=== PATIENT | male | born 1940 | race Caucasian/White ===

== ENCOUNTER → 2023-10-04 08:25 | Outpatient (REF) | payer OTHER, SELFPAY | LOC: RCS 08:25 | PROVIDERS: ATTENDING PHYSICIAN Internal Medicine Cardiovascular Disease; FAMILY PHYSICIAN Internal Medicine | DX: R06.09 Other forms of dyspnea (principal) | CPT/HCPCS: 93306 ==

== ENCOUNTER → 2023-10-27 10:01 | Outpatient (REF) | payer OTHER, SELFPAY | LOC: RAD 10:01 | PROVIDERS: ATTENDING PHYSICIAN Internal Medicine Cardiovascular Disease; FAMILY PHYSICIAN Internal Medicine | DX: I73.9 Peripheral vascular disease, unspecified (principal) | CPT/HCPCS: 93922; 93925 ==

== ENCOUNTER 2024-08-01 07:10 | Day surgery (SDC) | payer OTHER, SELFPAY ==
[2024-08-01 08:46] LABS: Glucose - Point of Care 124 mg/dl (70-99)
--- NOTE | 2024-08-01 09:25 | ITS.CL.CARDI ---
Software Quality Tester - Cardioversion
Cardioversion
Procedure Report:
Date of Procedure: August 01 2024
Procedure: Cardioversion
Indication: Symptomatic atrial fibrillation
Performing Physician: Arsi Easton DO, FACC
Technique: The patient was brought to the holding area. Signed informed consent was obtained. A time out was called and performed. The patient was anesthetized by the anesthesia service. Anticoagulation status was reviewed and appropriate. R2 pads
were placed anteriorly and posteriorly. A 200 J synchronized biphasic shock restored normal sinus rhythm without significant bradycardia. There were no complications.
Conclusion: Uncomplicated cardioversion from atrial fibrillation to sinus rhythm.
Recommendation: Routine post cardioversion care. Continue fdc anticoagulation.
== END 2024-08-01 10:25 | disposition home or self-care (01) ==
LOC: CATH 07:10
PROVIDERS: ATTENDING PHYSICIAN Nuclear Medicine Nuclear Cardiology; FAMILY PHYSICIAN Internal Medicine; OTHER PHYSICIAN Internal Medicine Cardiovascular Disease
DX: I48.91 Unspecified atrial fibrillation (principal); Z79.01 Long term (current) use of anticoagulants; Z79.82 Long term (current) use of aspirin; I08.3 Combined rheumatic disorders of mitral, aortic and tricuspid valves
CPT/HCPCS: 93312; 93320; 93325; 82962; 92960; 93005

== ENCOUNTER 2025-01-23 14:15 | Inpatient (IN) | payer OTHER, SELFPAY ==
[2025-01-23] VITALS (14 sets, daily range): BP systolic 128–161; BP diastolic 79–97; BMI 26.4; BMI 23.4
--- NOTE | 2025-01-23 12:09 | ED.GENMED ---
History of Present Illness
General
Chief Complaint: Breathing Problem
Time Seen by Provider: 01/23/25 12:08
Nursing documentation reviewed up to this point in time: agreed with
History of Present Illness
History of Present Illness:
84-year-old male referred to the ER from cardiology office for further evaluation of paroxysmal A-fib, decompensated heart failure, anemia. Patient has been in and out of A-fib over the last month. He reported some blood in the toilet today but
states he has not had an effective bowel movement in a week. He states that his stools were dark brown last time he had a BM. He denies cough or cold symptoms. He has been eating and drinking normally. He denies any significant peripheral edema.
He does report feeling fatigued.
I was able to review notes from his emergency room nurse, Dr Obando, prior to arrival who is concerned for intermittent GI bleeding as etiology of anemia. She would also feel that patient needs better control of A-fib if not initiation of
antiarrhythmics.
Past History
Past History
ED Past Medical History: CAD, CHF, GERD, NIDDM and Other (mr, pulmonary htn)
ED Past Surgical History: Appendectomy and Cardiac (Cardiac catheterization 05/01/2017 revealing stable coronary artery disease/medical management recommended.)
Social History
Tobacco: Former smoker
Drug: None
Personal:
Living: with family
Employment: Retired
Review of Systems
Review of Systems
Allergies reviewed?: Yes
Phy Exam
Physical Exam
Physical Exam:
Patient is awake, alert, appears in no acute distress, head is NCAT, PERRL, EOMI mucous membranes moist, conjunctiva pink, heart regular rate and rhythm without murmurs or ectopy, 2 out of 6 systolic ejection murmur best heard at left second costal
space, lungs are clear to auscultation without wheezes rales or rhonchi, no JVD, abdomen is soft and nontender on palpation, rectal exam performed with nurse present at bedside shows vault to be empty, no blood noted on glove, Hemoccult negative,
control positive extremities with trace edema symmetric, GCS is 15
Scores
Heart Failure Risk
Heart Failure Risk Score: Yes
History of Stroke or TIA: No
History of intubation for respiratory distress: No
Heart rate on ED arrival >/= 110: No
SaO2 <90% on arrival on room air: No
HR >/=110 during 3min walk test (or too ill to perform test): No
ECG has acute ischemic changes: No
Urea >/=12mmol/L (BUN 33.6mg/dL): Yes
Serum CO2>/=35mmol/L: No
Troponin I or T elevated to WI Level (0.4mg/dL): No
NT-proBNP >/=5,000ng/L (5,000pg/ml): Yes
HF Risk Score: 2
Admission Status: MEDIUM RISK 9.2% Consider observation or discharge to home with homecare & f/u visit to PCP/Video Tape Duplicator, or SNF for treatment
Course
Orders/Labs/Results
Orders:
Orders
01/23/25 11:59
EKG [Electrocardiogram (*1)] Urgent
Reason for Study: Shortness of Breath
EKG- Treatment ONCE
01/23/25 12:16
Pulse Ox/cont/shift [RESP] Stat
Quantity: 1
01/23/25 12:17
Cardiac Monitoring- Treatment ONCE
CR Chest - 2 Views Urgent
Comment:
Reason For Exam: dyspnea
01/23/25 12:23
Complete Blood Count/With Diff Urgent
Comprehensive Metabolic Panel Urgent
Magnesium Urgent
NT-proBNP Urgent
PTT Urgent
Prothrombin Time Urgent
Troponin I Q3H
01/23/25 13:20
Type+Screen Urgent
01/23/25 13:22
* Blood Bank Products Urgent
Blood Bank Products: *Packed RBC Leuko (PRBC's
Quantity: 1
Transfuse Today: Yes
Reason: Anemia
Furosemide [Lasix] 80 mg IV NOW STA
01/23/25 13:30
Magnesium Sulfate 1 G/D5w [Magnesium Sulfate] 1 gm in 100 ml IV NOW
01/23/25 15:30
Troponin I Q3H
Abnormal Lab Results
01/23/25
12:23
RBC 3.93 L 10^6/uL
(4.70-6.10)
Hgb 8.6 L g/dL
(13.0-18.0)
Hct 29.6 L %
(39.0-52.0)
MCV 75.3 L fL
(80.0-94.0)
MCH 21.9 L pg
(27.0-31.0)
MCHC 29.1 L g/dL
(33.0-37.0)
RDW 18.7 H %
(11.5-14.5)
Absolute Neuts (auto) 7.2 H 10^3/uL
(1.4-6.5)
Absolute Lymphs (auto) 0.7 L 10^3/uL
(1.2-3.4)
Absolute Monos (auto) 0.8 H 10^3/uL
(0.1-0.6)
Neutrophils % 81.8 H %
(42.2-75.2)
Lymphocytes % 7.5 L %
(20.5-51.1)
PT 19.2 H Sec
(11.4-14.6)
APTT 36.2 H Sec
(23.4-35.0)
Chloride 109 H mmol/L
(98-107)
BUN 34 H mg/dl
(9-20)
Creatinine 1.5 H mg/dL
(0.7-1.3)
Glucose 123 H mg/dl
(70-99)
Magnesium 1.5 L mg/dl
(1.6-2.3)
AST 15 L U/L
(17-59)
01/23/25 12:23
01/23/25 12:23
Vital Signs
Initial and Last Documented VS:
Initial Vital Signs
Temp Pulse Resp BP Pulse Ox
98.5 F 69 16 135/79 98
01/23/25 11:55 01/23/25 11:55 01/23/25 11:55 01/23/25 11:55 01/23/25 11:55
Last Documented Vital Signs
Temp Pulse Resp BP Pulse Ox
98.5 F 74 29 154/94 98
01/23/25 11:55 01/23/25 12:15 01/23/25 12:15 01/23/25 12:15 01/23/25 12:18
MDM/Problems Addressed
Differential Diagnosis Includes:
Differential diagnosis to consider but not limited to decompensated heart failure, symptomatic atrial fibrillation, symptomatic anemia, electrolyte dyscrasia along with other etiologies considered
Chronic conditions affecting care:
A-fib, diabetes, CAD, on long-term anticoagulation
*Radiology
Radiology exam reviewed: preliminary read by ED provider (I independently viewed and interpreted two-view chest x-ray showing cardiomegaly, increased pulmonary vascular congestion concerning for CHF)
*Pulse Oximetry
SaO2: 98
Oxygen Mode of Delivery: Room air
Patient hypoxic: no
*EKG
Interpreted by ED Provider?: Yes ( I independently viewed and interpreted twelve-lead EKG showing a flutter with 4-1 conduction, rate 67, leftward axis, no ST elevation, this is an abnormal tracing without evidence for acute ischemia, new A flutter
compared to prior)
*Balancer Interpretation
Rate: other (I independently viewed and interpreted rhythm strip showing a flutter with 4-1 conduction)
*Critical Care Note
Total Time (30-74mins, 75-104mins- exclusive of procedures): Not Applicable
Update Note
Update Note:
Patient resting in no acute distress, vital signs stable. I discussed with patient concern for decompensated CHF in light of symptomatic anemia and reported rectal bleeding although no evidence of rectal bleeding at the current time. Patient
agrees with plan. IV Lasix ordered in addition to 1 unit packed red cells. Written blood consent obtained. I reviewed full patient presentation with the hospitalist who accepts patient for admission.
ED Attending Note
-
Portions of this chart may have been created with voice recognition software.� Occasional wrong word or��sound alike� substitutions may have occurred due to the inherent limitations of voice recognition software.
Discharge Plan
Departure
Patient Disposition: Admit
Date of Disposition: 01/23/25
Time of Disposition: 13:29
Presentation/result/management discussed w/ accepting MD/DO: Hospitalist
Discharge Problem:
Anemia, CHF (congestive heart failure), Atrial flutter, Hypomagnesemia
Prescriptions:
No Action
folic acid 1 MG tablet
1 mg PO DAILY
rosuvastatin 20 MG tablet
20 mg PO DAILY
metformin 500 MG tablet extended release 24 hr
500 mg PO BID
cholecalciferol (vitamin D3) 2,000 UNITS tablet
2,000 unit PO DAILY@1400
isosorbide mononitrate 60 MG tablet extended release 24 hr
30 mg PO DAILY
famotidine 20 MG tablet
40 mg PO BID
carvedilol 12.5 MG tablet
6.25 mg PO BID
furosemide 40 mg Tablet
40 mg PO .MON.,TU.,WED.
pantoprazole 40 mg Tablet,Delayed Release (Dr/Ec)
40 mg PO DAILY
Eliquis 5 mg Tablet
5 mg PO BID
Referrals:
Amy Garcias MD [Family Provider, Internal Medicine]
Interventions
Interventions:
*Risk Screen - Suicide Last Done: 01/23/25 11:55
*General Assessment Last Done: 01/23/25 11:55
*Neglect/Abuse Screening Last Done: 01/23/25 11:55
*ED- Fall Risk Assessment Last Done: 01/23/25 11:55
*ED COVID-19 Vaccine History Last Done: 01/23/25 11:55
*ED Influenza Vaccine History Last Done: 01/23/25 11:55
ED- Cardiac Assessment Last Done: 01/23/25 12:35
ED- Pulmonary Assessment Last Done: 01/23/25 12:35
Discharge Date and Time
Print Language: KAZAKH
[2025-01-23 12:34] LABS: Hematocrit 29.6 % (39.0-52.0); Hemoglobin 8.6 g/dL (13.0-18.0); Mean Corp Hgb Conc. 29.1 g/dL (33.0-37.0); Mean Corpuscular Volume 75.3 fL (80.0-94.0); Nucleated Red Blood Cells % 0.2 % (-); Platelet Count 295 10^3/uL (130-400); Red Cell Dist. Width 18.7 % (11.5-14.5)
[2025-01-23 12:45] LABS: INR 1.56; PT 19.2 Sec (11.4-14.6)
[2025-01-23 12:46] LABS: APTT 36.2 Sec (23.4-35.0)
[2025-01-23 12:51] LABS: ALT (SGPT) 11 U/L (0-50); AST (SGOT) 15 U/L (17-59); Albumin 4.3 g/dl (3.5-5.0); Alkaline Phosphatase 63 U/L (38-126); Blood Urea Nitrogen 34 mg/dl (9-20); Calcium 9.4 mg/dl (8.4-10.2); Carbon Dioxide 24 mmol/L (22-30); Chloride 109 mmol/L (98-107); Estimated Creatinine Clearance 38 ml/min; Glucose 123 mg/dl (70-99); Magnesium 1.5 mg/dl (1.6-2.3); Potassium 4.6 mmol/L (3.5-5.1); Sodium 142 mmol/L (135-145); Total Protein 7.6 g/dl (6.3-8.2); eGFR 45.34
[2025-01-23 13:03] LABS: Troponin I 0.034 ng/ml
[2025-01-23] MEDS: LASIX 80 MG IV (14:03)
[2025-01-23] MEDS: MAGNESIUM SULFATE 100 IV (14:06)
--- NOTE | 2025-01-23 14:08 | HPS.HSE ---
Addendum entered and electronically signed by Drea Higgins MD 01/23/25 17:56:
This is an addendum to H&P written by Cary Mathew on 01/23/2025. �Patient seen and examined dependently with PA.
84-year-old male past medical history of paroxysmal atrial fibrillation on Eliquis, SVT, hypertension, CAD, chronic diastolic heart failure, COPD, type 2 diabetes, presenting with intermittent atrial fibrillation for the past month. �He had bright
red blood in the toilet intermittently over past week. Has fatigue.
He had polypectomy in August. �GI doctor at [facility]. �He went to [facility] ER on 01/18 and hemoglobin is 8.6 previously 01-18. �Plan was for colonoscopy next month.
Vital signs unremarkable. �Rectal exam showed empty vault and heme-negative.
Labs show hemoglobin 8.6. �Cardiac BNP 7000. �Magnesium 1.5. �Creatinine 1.5. �EKG shows atrial flutter with 41 AV conduction. �Chest x-ray pending.
Patient with acute HFpEF exacerbation/symptomatic microcytic anemia. �80 IV Lasix given. �1 unit of blood. �Check iron studies. �Hold Eliquis. �Cardiology consulted.�
Senna started for constipation.�
Original Note:
Family Physician
-
Family Physician: Amy Garcias
Chief Complaint
-
Shortness of Breath
History of Present Illness
Patient is an 84 y/o male past medical history of paroxysmal atrial fibrillation, chronic diastolic heart failure, coronary artery disease, hypertension, hyperlipidemia, diabetes and COPD who presents with shortness of breath. Patient reports
ongoing shortness of breath for the past several weeks. He denies cough, lower extremity edema or weight gain. He reports frequent episodes of dizziness particularly when walking but notes it resolves when he sits. He was seen by cardiology in the
office today who noted him to appear short of breath and very pale in the office. His hemoglobin has dropped from around 10/11 to 8.6. Patient reports he has been having trouble with constipation, and has noted some drops of bright red blood on
the toilet tissue. He denies any blood in the toilet or black/dark colored stools.
Medical History
Past Medical History
Past Medical History: Reports Other
Additional Past Medical History:
Coronary Artery Disease s/p Stent
Chronic Diastolic Heart Failure
Atrial Fibrillation
Essential Hypertension
Hyperlipidemia
Diabetes Mellitus, Type II
COPD
Past Surgical History: Reports Other
Additional Past Surgical History:
Appendectomy
Bilateral Cataracts
Back Surgery
Social History
Tobacco: Former Smoker
Alcohol: Occasional
Family History
Family History: Not pertinent
Allergies / Home Medications
Allergies reflects when Allergies were last updated in [facility].
Home Medications with original date entered in [facility]
Allergy/Medication List:
Allergies
Allergy/AdvReac Type Severity Reaction Status Date / Time
No Known Allergies Allergy Verified 01/23/25 11:57
Home Medications
folic acid 1 mg tablet 1 mg PO DAILY Supplement 11/04/15
rosuvastatin 20 mg tablet 20 mg PO DAILY High cholesterol 11/04/15
metformin 500 mg tablet,extended release 24 hr 500 mg PO BID Diabetes 05/31/17
famotidine 20 mg tablet 40 mg PO BID Gastrointestinal issue 06/05/19
apixaban 5 mg tablet (Eliquis) 5 mg PO BID 08/01/24
furosemide 40 mg tablet 40 mg PO MOTUWE 08/01/24
pantoprazole 40 mg tablet,delayed release 40 mg PO DAILY 08/01/24
carvedilol 6.25 mg tablet 6.25 mg PO BID 01/23/25
cholecalciferol (vitamin D3) 50 mcg (2,000 unit) tablet 50 mcg PO DAILY 01/23/25
isosorbide mononitrate 30 mg tablet,extended release 24 hr 30 mg PO DAILY 01/23/25
Review of Systems
-
A 12 point ROS was completed and negative except as noted: Yes
Constitutional: Denies Fever
Respiratory: Reports Trouble Breathing; Denies Cough
Cardiac: Denies Chest Pain or Palpitations
Abdomen/GI: Reports Constipated
Physical Exam
Vital Signs
Vital Signs
Temp Pulse Resp BP Pulse Ox
98.5 F 67 29 137/97 98
01/23/25 11:55 01/23/25 14:03 01/23/25 12:15 01/23/25 14:03 01/23/25 12:18
Physical Exam
General: Well Developed, Well Nourished and No Apparent Distress
HEENT: NormoCephalic, Anicteric, Moist mucous membranes and Atraumatic
Respiratory: Rales and Non Labored Respirations
Cardiac: S1/S2, Irregular Rhythm, Murmur and JVD; No Tachycardia
GI: Soft, Non Tender, Non Distended and Other (Slightly hypoactive bowel sounds)
Rectal: Hem Negative (Per ED provider)
Musculoskeletal: No Clubbing, No Cyanosis and No Edema
Skin: Warm and Dry; No Rash
Neuro: Awake, Alert, Oriented and Nonfocal/grossly intact
Psych: Calm
Laboratory Results
-
01/23/25 12:23
01/23/25 12:23
Laboratory Results
PT 19.2 Sec (11.4-14.6) H 01/23/25 12:23
INR 1.56 01/23/25 12:23
APTT 36.2 Sec (23.4-35.0) H 01/23/25 12:23
Total Bilirubin 1.1 mg/dl (0.2-1.3) 01/23/25 12:23
AST 15 U/L (17-59) L 01/23/25 12:23
ALT 11 U/L (0-50) 01/23/25 12:23
Alkaline Phosphatase 63 U/L (38-126) 01/23/25 12:23
Troponin I 0.034 ng/ml 01/23/25 12:23
Data Reviewed
-
Diagnostic Radiology: Report Reviewed by me
Lab Data: Labs Reviewed by me
Impression/Plan
-
Acute on Chronic HFpEF
-Consult Cardiology
-Check Echo as prior is from 2023
-Continue Lasix 40mg IV Daily
-Monitor Daily Weights
Microcytic Anemia
-Notes indicate baseline Hgb ~10-11
-1 unit PRBCs ordered by ED
-Check iron studies
-Episodes of bright red blood on toilet tissue seem more consistent with hemorrhoids particularly with reports of constipation
-Initial stool heme-negative in ED - Continue to heme-test stools
-Hold on GI consult for now
Constipation
-Start Senna-S 2 tabs BID
Atrial Fibrillation, seem persistent as cardiology note indicates patient has been in A-Fib since December
-Hold Eliquis due to anemia and slight hemorrhoidal bleeding
-Continue carvedilol for rate control
Coronary Artery Disease s/p Stent
-Patient is not currently on aspirin as outpatient -Defer to Cardiology
-Continue isosorbide mononitrate
-Continue rosuvastatin
Diabetes Mellitus, Type II
-Hold metformin
-Monitor sugars and continue coverage insulin
DVT proph: SCDs
Code Status: Full Code
[2025-01-23 14:56] LABS: Iron 33 ug/dl (49-181)
[2025-01-23 15:06] LABS: Total Iron Binding Capacity 484 ug/dl (261-462)
[2025-01-23 15:32] LABS: Ferritin 21.1 ng/ml (17.9-464.0)
--- NOTE | 2025-01-23 15:56 | W.PN.CARDCBS ---
Addendum entered and electronically signed by Sumi Obando MD 01/23/25 18:20:
I saw and examined the patient.
The Sinter Press Operator's note was reviewed and I agree with the note.
Comment: Please refer to my outpatient note/consultation. Patient recently was seen at [facility] emergency department 01/18/2025 with increasing shortness of breath. He was more anemic than prior baseline at 8.6 compared to 10�11
previously. He had symptoms of heart failure with preserved ejection fraction and increased volume with elevated proBNP. He was discharged with outpatient follow-up and outpatient follow-up colonoscopy to follow-up on prior GI bleed and
polypectomy 08/2024. He presented to my office today with dyspnea on exertion, decline in activity level and feeling poorly. He was seen and transported to the emergency department for assessment. He once again has significant anemia with
recurrent constipation and some blood seen in the toilet. He in addition is volume overloaded with heart failure. Lastly he has known atrial fibrillation which has been relatively quiet but since December he has had frequent paroxysmal atrial
fibrillation almost persistent at times. Rate was controlled in the office. He is on oral anticoagulation.
Plan at this time:
Labs reviewed from the emergency department.
IV Lasix started for diuresis. Follow input/output and daily weights. Follow creatinine given renal insufficiency.
Given more atrial fibrillation noted which has been paroxysmal but now with increased burden since December on Linq implantable monitor continue rate control but consider antiarrhythmic drug therapy. Oral anticoagulation as able after GI
assessment.
GI assessment for anemia which is likely driving some of his heart failure.
Repeat echocardiogram. Last echocardiogram performed elsewhere.
Original Note:
Today's Communication / Plan
-
GI eval
IV diuresis
Impression / Plan
-
Please refer to office note dated 01/23/25 as consult
Primary Flight Steward: Dr. Sumi Obando
Assessment:
Acute heart failure with preserved EF
Acute on chronic anemia
ER visit to [facility] 01/18/25 for acute anemia, CHF
History of GI bleeding with polypectomy (precancerous) 07/2024
CKD
Paroxysmal atrial fibrillation, 34% burden
History of CV 07/[address] since 2020
Chronic Eliquis anticoagulation
CAD with prior stenting in 2003 to circumflex
History of ablation for AVNRT in 2019
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
Hypertension
Type 2 diabetes
PVCs
Bradycardia
COPD
ALBERT on CPAP
Former smoker
ECHO 10/04/23: EF 50%, stage III diastolic dysfunction, MAC, moderate eccentric MR, mild to moderate with peak/mean gradients 43/23 mmHg, JAIME 1.1 cm�, mild to moderate TR, PAP 60 mmHg
Plan:
- Patient was seen in office today for follow-up post ER visit 01/18/2025 to [place] for acute on chronic anemia and shortness of breath. He was back in atrial fibrillation during that visit and Coreg dose was increased back to 6.25 mg twice
daily, (previously had been decreased due to dizziness). He was felt to be in acute heart failure and there was also concern for continued bleeding. Of note he had prior GI bleed with polypectomy 07/2024 and was planned for repeat colonoscopy
02/25/2025.
- proBNP 7280. received IV lasix 80mg in ER. will plan for IV lasix 40mg daily pending response. was on lasix 40mg MTuWe as OP. Cr 1.5 (baseline 1.3-1.7)
- hgb 8.6 on arrival. receiving blood transfusion. GI to eval.
- iron studies reviewed, consider iron repletion
- noted to be in rate controlled aflutter on review of EKG. recent burden 34% by by linq monitor since 12/18/24. continue rate control strategy with OP coreg for now as eliquis on hold with GI bleeding. eventually would consider for AAD therapy
- trop 0.034. no CP.
- consider repeat echo, last from 2023 as above
- will follow
Progress Note - Flight Steward
Subjective
Date of Service: January 23, 2025
patient reports SOB. no CP
Objective
Labs:
01/23/25 12:23
01/23/25 12:23
Labs
Hgb 8.6 g/dL (13.0-18.0) L 01/23/25 12:23
Hct 29.6 % (39.0-52.0) L 01/23/25 12:23
Plt Count 295 10^3/uL (130-400) 01/23/25 12:23
PT 19.2 Sec (11.4-14.6) H 01/23/25 12:23
INR 1.56 01/23/25 12:23
APTT 36.2 Sec (23.4-35.0) H 01/23/25 12:23
Sodium 142 mmol/L (135-145) 01/23/25 12:23
Potassium 4.6 mmol/L (3.5-5.1) 01/23/25 12:23
BUN 34 mg/dl (9-20) H 01/23/25 12:23
Creatinine 1.5 mg/dL (0.7-1.3) H 01/23/25 12:23
Glucose 123 mg/dl (70-99) H 01/23/25 12:23
Troponins
01/23/25
12:23
Troponin I 0.034
Vital Signs and I&O:
Vital Signs
Temp Pulse Resp BP Pulse Ox
98.6 F 81 20 142/95 96
01/23/25 15:50 01/23/25 15:50 01/23/25 15:50 01/23/25 15:50 01/23/25 15:50
Vital Signs
Temp Pulse Resp BP Pulse Ox
98.6 F 81 20 142/95 96
01/23/25 15:50 01/23/25 15:50 01/23/25 15:50 01/23/25 15:50 01/23/25 15:50
Intake & Output
01/21/25 01/22/25 01/23/25 01/24/25
07:59 07:59 07:59 07:59
Intake Total 0 / 0
Output Total 400 / 400
Balance -400 / -400
Physical Exam
Physical Exam
GEN: No distress, awake, alert, oriented x3. pale. receiving blood transfusion. on supp O2
HEENT: supple, anicteric, mmm, eomi
LUNGS: Crackles B/L, no wheezes/rales
CV: Irreg, S1/S2, 2/6 murmur
ABD: soft, BS+, NT/ND
EXT: No cyanosis, clubbing. 1+ edema of B/L ankles
NEURO: Gross non-focal
SKIN: Warm, pink, dry. No rash
[2025-01-23 16:03] LABS: Folate > 20.0 ng/ml (2.76-20); Vitamin B12 291 pg/ml (239-931)
[2025-01-23 16:30] LABS: Troponin I 0.032 ng/ml
[2025-01-23 17:19] LABS: Glucose - Point of Care 120 mg/dl (70-99)
[2025-01-23] MEDS: NOVOLOG FLEXPEN-LOW RESISTANCE SC (17:31)
--- NOTE | 2025-01-23 18:02 | PTCARENOTE ---
pt presents from ED via stretcher. pt AAO*2, Disoriented to place, confused at times. pt with PRBCs infusing. pt denies any pain at this time. Vss, Room air. pt oriented to the room. bed alarm in, SCD placed in. call das within the reach.
[2025-01-23] MEDS: SENOKOT-S 2 TABLET PO (19:39)
[2025-01-23] MEDS: COREG 6.25 MG PO (19:40)
[2025-01-23 21:32] LABS: Glucose - Point of Care 114 mg/dl (70-99)
[2025-01-24] VITALS (8 sets, daily range): BP systolic 99–158; BP diastolic 62–99; PULSE 68–69; O2SAT 97; BMI 23.1
[2025-01-24 07:30] LABS: Glucose - Point of Care 135 mg/dl (70-99)
[2025-01-24] MEDS: NOVOLOG FLEXPEN-LOW RESISTANCE SC ×2 (07:31→17:27)
[2025-01-24] MEDS: SENOKOT-S 2 TABLET PO ×2 (07:44→19:53)
[2025-01-24] MEDS: IMDUR (EXTENDED RELEASE) 30 MG PO (07:44)
[2025-01-24] MEDS: PEPCID 20 MG PO (07:44)
[2025-01-24] MEDS: LASIX 40 MG IV (07:44)
[2025-01-24] MEDS: COREG 6.25 MG PO (07:44)
[2025-01-24] MEDS: CRESTOR 20 MG PO (07:44)
[2025-01-24] MEDS: PROTONIX 40 MG PO (07:46)
[2025-01-24 09:34] LABS: Hematocrit 31.3 % (39.0-52.0); Hemoglobin 9.2 g/dL (13.0-18.0); Mean Corp Hgb Conc. 29.4 g/dL (33.0-37.0); Mean Corpuscular Volume 74.0 fL (80.0-94.0); Platelet Count 277 10^3/uL (130-400); Red Cell Dist. Width 19.1 % (11.5-14.5)
[2025-01-24 10:02] LABS: Glycohemoglobin (HgbA1c) 6.3 % (4.0-5.6)
[2025-01-24 10:03] LABS: Blood Urea Nitrogen 37 mg/dl (9-20); Calcium 9.2 mg/dl (8.4-10.2); Carbon Dioxide 26 mmol/L (22-30); Chloride 105 mmol/L (98-107); Estimated Creatinine Clearance 41 ml/min; Glucose 203 mg/dl (70-99); Magnesium 1.6 mg/dl (1.6-2.3); Potassium 4.3 mmol/L (3.5-5.1); Sodium 140 mmol/L (135-145); eGFR 45.34
--- NOTE | 2025-01-24 10:29 | W.PN.HOSP.TC ---
Addendum entered and electronically signed by Stan Pastor MD 01/24/25 12:35:
Order CBC in AM
Original Note:
Today's Communication/Plan
-
IV Lasix
Further GDMT for HF per cardiology
Start IV Iron for 2-3 doses.
Assessment / Plan
Assessment / Plan
Physical Exam
General: chronically ill looking, no Apparent Distress
HEENT: Normocephalic, Anicteric, Moist mucous membranes and Atraumatic
Respiratory: clear lungs, I did not hear rales
Cardiac: S1/S2, Irregular Rhythm, Murmur
GI: Soft, Non Tender, Non Distended
Rectal: Hem Negative (Per ED provider)
Musculoskeletal: No Clubbing, No Cyanosis and No Edema
Skin: Warm and Dry; No Rash
Neuro: Awake, Alert, Oriented and Nonfocal/grossly intact
Psych: Calm
Acute on Chronic HF mildly reduced EF at LVEF 50%
His breathing is better
Will do gentle diuresis due to his age/ seems very frail
f/w echo
Daily weight
on BB, Imdur, Lasix, Statin,
Further GDMT for HF per cardiology
Monitor BMP
Appreciate cardiology help
# Chronic blood loss anemia with microcytic Anemia
-Notes indicate baseline Hgb ~10-11
-s/p 1 unit PRBCs ordered by ED
-Low Iron, start IV Iron
-Episodes of bright red blood on toilet tissue seem more consistent with hemorrhoids particularly with reports of constipation
-Initial stool heme-negative in ED - Continue to heme-test stools
- Can resume his GI follow-up after treating heart failure.
# Constipation
-Start Senna-S 2 tabs BID
# Paroxysmal atrial fibrillation, 34% burden
History of CV 07/2024
c/w Coreg
Chronic Eliquis anticoagulation
-Hold Eliquis due to anemia and slight hemorrhoidal bleeding
-Continue carvedilol for rate control
Coronary Artery Disease s/p Stent
-Patient is not currently on aspirin as outpatient -Defer to Cardiology
-Continue isosorbide mononitrate
-Continue rosuvastatin
# CKD stage IIIA
seems at baseline
Monitor for retention while on Lasix.
#Diabetes Mellitus, Type II
-Hold metformin while on IV Lasix to protect kidney function.
-Monitor sugars and continue coverage insulin
DVT proph: SCDs
Code Status: Full Code
Total time spent to see the patient, examine the patient, review data and lab results, discuss treatment plan with patient, nursing staff around 55 minutes
Anticipated Discharge: > 48 hours
Subjective/Interval History
-
Date of Service: January 24, 2025
He reports improvement in breathing
Not on oxygen
No chest pain
No fevers
Objective Data
-
Labs:
Laboratory Results
01/24/25
08:59
WBC 8.9
Hgb 9.2 L
Hct 31.3 L
Plt Count 277
Sodium 140
Potassium 4.3
Chloride 105
Carbon Dioxide 26
BUN 37 H
Creatinine 1.5 H
Glucose 203 H
Calcium 9.2
Vital Signs:
Vital Signs
Temp Pulse Resp BP Pulse Ox
97.4 F 68 16 158/99 96
01/24/25 07:21 01/24/25 07:44 01/24/25 07:21 01/24/25 07:44 01/24/25 07:21
I&O
01/23/25 01/24/25 01/25/25
06:59 06:59 06:59
Intake Total 1090 / 1090
Output Total 2775 / 2775
Balance -1685 / -1685
[2025-01-24 11:51] LABS: Glucose - Point of Care 176 mg/dl (70-99)
--- NOTE | 2025-01-24 12:08 | W.PN.CARDCBS ---
Addendum entered and electronically signed by Cm Christianson MD 01/24/25 14:46:
I saw and examined the patient.
The Amr Physician's note was reviewed and I agree with the note.
Comment: GEN: No distress, awake, Ox3
HEENT: supple, anicteric, mmm
LUNGS: CTA, no wheezes/rales
CV: Irreg, S1/S2, 1/6 syst LSB, no murmur
ABD: soft, BS+, NT/ND
EXT: No edema
NEURO: Gross non-focal
SKIN: No rash
plan:
Overall feeling well. He has lost 10 pounds and is diuresed well. Would continue Lasix IV today and then convert over to p.o. in AM. Would switch to 40 mg p.o. daily.
Check echocardiogram today.
Continue Coreg, Imdur, and Crestor.
Hemoglobin at 9.2. He has a microcytic anemia and will need GI evaluation.
Original Note:
Today's Communication / Plan
-
continue IV lasix
echo
iron repletion. consider resume OP eliquis as heme negative. as Cr 1.5 and age greater than 80 with recent gi bleed, would favor placing on lower dose of 2.5mg BID
Impression / Plan
-
Please refer to office note dated 01/23/25 as consult
Primary Carrier Operator: Dr. Sumi Obando
Assessment:
Acute heart failure with preserved EF
Acute on chronic anemia
ER visit to [facility] 01/18/25 for acute anemia, CHF
History of GI bleeding with polypectomy (precancerous) 07/2024
CKD
Paroxysmal atrial fibrillation, 34% burden
History of CV 07/[address] since 2020
Chronic Eliquis anticoagulation
CAD with prior stenting in 2003 to circumflex
History of ablation for AVNRT in 2019
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
Hypertension
Type 2 diabetes
PVCs
Bradycardia
COPD
ALBERT on CPAP
Former smoker
ECHO 10/04/23: EF 50%, stage III diastolic dysfunction, MAC, moderate eccentric MR, mild to moderate with peak/mean gradients 43/23 mmHg, JAIME 1.1 cm�, mild to moderate TR, PAP 60 mmHg
KACIE 08/01/24: EF 50%, no atrial appendage thrombus, at least moderate eccentric posteriorly directed MR, known , no AR, at least mild TR, mild to moderate atherosclerotic plaque along descending thoracic aorta, not mobile
Plan:
- Patient was seen in office 01/23 for follow-up post ER visit 01/18/2025 to [facility] for acute on chronic anemia and shortness of breath. He was back in atrial fibrillation during that visit and Coreg dose was increased back to 6.25 mg
twice daily, (previously had been decreased due to dizziness). He was felt to be in acute heart failure and there was also concern for continued bleeding/anemia. Of note he had prior GI bleed with polypectomy 07/2024 and is planned for repeat
colonoscopy 02/25/2025.
- proBNP 7280. received IV lasix 80mg in ER 01/23 with good response. continue IV lasix 40mg daily. was on lasix 40mg MTuWe as OP. Cr stable at 1.5 (baseline 1.3-1.7)
- hgb up to 9.2 s/p 1U PRBCs on 01/23. was reportedly heme negative in ER. iron studies noted, IV iron ordered
- noted to be in rate controlled aflutter on review of tele overnight. recent burden 34% by by linq monitor since 12/18/24. continue rate control strategy with OP coreg for now as eliquis on hold with recent GI bleeding. eventually would consider for
AAD therapy
- consider resume OP eliquis as heme negative. as Cr 1.5 and age greater than 80 with recent gi bleed, would favor placing on lower dose of 2.5mg BID
- trops stable in 0.03 range. no CP.
- Repeat echo, last from 2023 and KACIE from 07/2024 as above. Reassess degree of MR/
Progress Note - Carrier Operator
Subjective
Date of Service: January 24, 2025
Reports breathing is improved today. States has had good urine output with IV Lasix
Objective
Labs:
01/24/25 08:59
01/24/25 08:59
Labs
Hgb 9.2 g/dL (13.0-18.0) L 01/24/25 08:59
Hct 31.3 % (39.0-52.0) L 01/24/25 08:59
Plt Count 277 10^3/uL (130-400) 01/24/25 08:59
PT 19.2 Sec (11.4-14.6) H 01/23/25 12:23
INR 1.56 01/23/25 12:23
APTT 36.2 Sec (23.4-35.0) H 01/23/25 12:23
Sodium 140 mmol/L (135-145) 01/24/25 08:59
Potassium 4.3 mmol/L (3.5-5.1) 01/24/25 08:59
BUN 37 mg/dl (9-20) H 01/24/25 08:59
Creatinine 1.5 mg/dL (0.7-1.3) H 01/24/25 08:59
Glucose 203 mg/dl (70-99) H 01/24/25 08:59
Troponins
01/23/25 01/23/25
12:23 15:30
Troponin I 0.034 0.032
Vital Signs and I&O:
Vital Signs
Temp Pulse Resp BP Pulse Ox
98.3 F 67 16 103/67 97
01/24/25 11:22 01/24/25 11:22 01/24/25 11:22 01/24/25 11:22 01/24/25 11:22
Vital Signs
Temp Pulse Resp BP Pulse Ox
98.3 F 67 16 103/67 97
01/24/25 11:22 01/24/25 11:22 01/24/25 11:22 01/24/25 11:22 01/24/25 11:22
Intake & Output
01/22/25 01/23/25 01/24/25 01/25/25
07:59 07:59 07:59 07:59
Intake Total 1090 / 1090
Output Total 2775 / 2775
Balance -1685 / -1685
Physical Exam
Physical Exam
GEN: No distress, awake, alert, oriented x3. Sitting in chair
HEENT: supple, anicteric, mmm, EOMI
LUNGS: Few crackles bilaterally
CV: Irreg, S1/S2, 2/6 syst LSB
ABD: soft, BS+, NT/ND
EXT: No cyanosis, clubbing. trace edema of B/L LE
NEURO: Gross non-focal
SKIN: Warm, pink, dry. No rash
[2025-01-24] MEDS: NOVOLOG FLEXPEN-LOW RESISTANCE 1 UNITS SC (12:22)
[2025-01-24] MEDS: FERRLECIT 110 MG IV (13:46)
--- NOTE | 2025-01-24 15:55 | CM ---
Alert awake oriented patient who lives with his Christina in a condo with 4 step to enter . He is assisted in all activities of daily living.He was offered VN requested [facility] . Linda Ann liaison [facility] notified.He uses walker and cane.
No VN hx / No SNF history
Pharmacy [facility]
PCP DR Garcias
PLAN Home with [facility] if accepted
[2025-01-24 17:23] LABS: Glucose - Point of Care 95 mg/dl (70-99)
[2025-01-24] MEDS: COREG PO (20:20)
[2025-01-24 20:58] LABS: Glucose - Point of Care 140 mg/dl (70-99)
[2025-01-25 03:01] VITALS: BP 133/81
[2025-01-25 06:00] VITALS: BMI 22.5
[2025-01-25 07:04] VITALS: BP 152/110
[2025-01-25] MEDS: CRESTOR 20 MG PO (07:13)
[2025-01-25] MEDS: IMDUR (EXTENDED RELEASE) 30 MG PO (07:13)
[2025-01-25] MEDS: SENOKOT-S 2 TABLET PO ×2 (07:13→21:54)
[2025-01-25] MEDS: LASIX 40 MG IV (07:13)
[2025-01-25] MEDS: PEPCID 20 MG PO (07:13)
[2025-01-25] MEDS: PROTONIX 40 MG PO (07:13)
[2025-01-25] MEDS: COREG 6.25 MG PO ×2 (07:13→21:53)
[2025-01-25] MEDS: NOVOLOG FLEXPEN-LOW RESISTANCE SC ×3 (07:19→16:30)
[2025-01-25 07:20] LABS: Glucose - Point of Care 106 mg/dl (70-99)
[2025-01-25 08:16] LABS: Hematocrit 32.1 % (39.0-52.0); Hemoglobin 8.9 g/dL (13.0-18.0); Mean Corp Hgb Conc. 27.7 g/dL (33.0-37.0); Mean Corpuscular Volume 77.5 fL (80.0-94.0); Red Cell Dist. Width 19.3 % (11.5-14.5)
[2025-01-25 08:17] LABS: Platelet Count 277 10^3/uL (130-400)
[2025-01-25 08:41] LABS: Blood Urea Nitrogen 36 mg/dl (9-20); Calcium 9.0 mg/dl (8.4-10.2); Carbon Dioxide 27 mmol/L (22-30); Chloride 104 mmol/L (98-107); Estimated Creatinine Clearance 43 ml/min; Glucose 96 mg/dl (70-99); Potassium 4.1 mmol/L (3.5-5.1); Sodium 140 mmol/L (135-145); eGFR 49.25
--- NOTE | 2025-01-25 10:58 | W.PN.HOSP.TC ---
Addendum entered and electronically signed by Stan Pastor MD 01/25/25 16:07:
Addendum
Discussed with catering barista and washcoat wiper. We will start the patient on IV heparin to monitor his hemoglobin. If no bleeding, he can be resumed on Eliquis and follow-up with his GI doctor for further management.
End
Addendum entered and electronically signed by Stan Pastor MD 01/25/25 13:29:
Addendum
Reviewed note of cardiology and spoke to Dr. Christianson, recommended inpatient GI evaluation to be able to resume systemic anticoagulation..
Will reach out to GI.
End
Original Note:
Today's Communication/Plan
-
Last dose of IV Iron 01/26 then dc around lunchtime
Assessment / Plan
Assessment / Plan
Physical Exam
General: chronically ill looking, no Apparent Distress
HEENT: Normocephalic, Anicteric, Moist mucous membranes and Atraumatic
Respiratory: clear lungs, I did not hear rales
Cardiac: S1/S2, Irregular Rhythm, Murmur
GI: Soft, Non Tender, Non Distended
Rectal: Hem Negative (In ER ), no black stools or bleeding.
Musculoskeletal: No Clubbing, No Cyanosis and No Edema
Skin: Warm and Dry; No Rash
Neuro: Awake, Alert, Oriented and Nonfocal/grossly intact
Psych: Calm
Acute on Chronic HF mildly reduced EF at LVEF 50%
His breathing is better
Will do gentle diuresis due to his age/ seems very frail
f/w echo
Daily weight
on BB, Imdur, Lasix, Statin,
Further GDMT for HF per cardiology
Monitor BMP
Appreciate cardiology help
# Chronic blood loss anemia with microcytic Anemia
-Notes indicate baseline Hgb ~10-11
-s/p 1 unit PRBCs ordered by ED
-Low Iron, started IV Iron for 3 doses.
- Bowel movements brown-colored. Rectal exam negative in the emergency room
-Initial stool heme-negative in ED - Continue to heme-test stools
- Can resume his GI follow-up after treating heart failure.
# Constipation
-Start Senna-S 2 tabs BID
# Paroxysmal atrial fibrillation, 34% burden
History of CV 07/2024
c/w Coreg
Chronic Eliquis anticoagulation
-Hold Eliquis due to anemia and slight hemorrhoidal bleeding
-Continue carvedilol for rate control
Coronary Artery Disease s/p Stent
-Patient is not currently on aspirin as outpatient -Defer to Cardiology
-Continue isosorbide mononitrate
-Continue rosuvastatin
# CKD stage IIIA
seems at baseline
Monitor for retention while on Lasix.
#Diabetes Mellitus, Type II
-Hold metformin while on IV Lasix to protect kidney function.
-Monitor sugars and continue coverage insulin
DVT proph: SCDs
Code Status: Full Code
Total time spent to see the patient, examine the patient, review data and lab results, discuss treatment plan with patient, nursing staff around 55 minutes
Anticipated Discharge: Within 24 hours
Subjective/Interval History
-
Date of Service: January 25, 2025
He is requesting to go home
Sitting in chair with no complaints
Objective Data
-
Labs:
Laboratory Results
01/25/25
06:03
WBC 8.1
Hgb 8.9 L
Hct 32.1 L
Plt Count 277
Sodium 140
Potassium 4.1
Chloride 104
Carbon Dioxide 27
BUN 36 H
Creatinine 1.4 H
Glucose 96
Calcium 9.0
Vital Signs:
Vital Signs
Temp Pulse Resp BP Pulse Ox
98.2 F 88 18 152/110 96
01/25/25 07:04 01/25/25 07:13 01/25/25 07:04 01/25/25 07:13 01/25/25 07:04
I&O
01/24/25 01/25/25 01/26/25
06:59 06:59 06:59
Intake Total 1090 / 1090 720 / 720 240 / 240
Output Total 2775 / 2775 1525 / 1525
Balance -1685 / -1685 -805 / -805 240 / 240
[2025-01-25 11:16] VITALS: BP 114/82
[2025-01-25 11:52] LABS: Glucose - Point of Care 113 mg/dl (70-99)
--- NOTE | 2025-01-25 12:41 | W.PN.CARDCBS ---
Today's Communication / Plan
-
Has diuresed well. Will switch Lasix to 40 mg p.o. daily.
Concern remains with hemoglobin of 8.9 and microcytic anemia with need for Eliquis
Recommend GI evaluation.
If restart Eliquis would consider 2.5 mg p.o. BID
Continue Coreg and Imdur.
Impression / Plan
-
Please refer to office note dated 01/23/25 as consult
Primary Sheeter Machine Operator: Dr. Sumi Obando
Assessment:
Acute heart failure with preserved EF
Acute on chronic anemia
ER visit to [facility] 01/18/25 for acute anemia, CHF
History of GI bleeding with polypectomy (precancerous) 07/2024
CKD
Paroxysmal atrial fibrillation, 34% burden
History of CV 07/[address] since 2020
Chronic Eliquis anticoagulation
CAD with prior stenting in 2003 to circumflex
History of ablation for AVNRT in 2019
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
Hypertension
Type 2 diabetes
PVCs
Bradycardia
COPD
ALBERT on CPAP
Former smoker
ECHO 10/04/23: EF 50%, stage III diastolic dysfunction, MAC, moderate eccentric MR, mild to moderate with peak/mean gradients 43/23 mmHg, JAIME 1.1 cm�, mild to moderate TR, PAP 60 mmHg
KACIE 08/01/24: EF 50%, no atrial appendage thrombus, at least moderate eccentric posteriorly directed MR, known , no AR, at least mild TR, mild to moderate atherosclerotic plaque along descending thoracic aorta, not mobile
Echo 02/01: EF 50 to 55%, mild LVH, stage III diastolic dysfunction, moderate aortic stenosis with severe mitral regurgitation. Moderate to severe TR PA pressure 70.
Plan:
- Echo was reviewed. He has significant valvular disease including aortic stenosis, severe mitral regurgitation and moderate to severe tricuspid regurgitation. He has diuresed very well has lost 12 pounds. Will switch over to Lasix 40 mg daily in
AM.
- He is in A-fib with adequately with controlled rates. His atrial fibrillation burden is about 34%. Continue Coreg.
- He remains with marked microcytic anemia. His Eliquis is currently on hold. Recommend GI evaluation. This will help better risk assess him regarding his need for anticoagulation.
- If we do resume the Eliquis would resume at 2.5 mg twice daily with his age and CKD.
- Continue Coreg, Imdur, and rosuvastatin.
- Patient not on Farxiga. Will review records.
- Has known CAD. Before he would consider ischemic evaluation needs GI evaluation to assess possible bleeding
- Will discuss with prorate clerk.
Progress Note - Sheeter Machine Operator
Subjective
Date of Service: January 25, 2025
Breathing is overall stable. He has diuresed well. He denies any chest pains. No overt bleeding that he is aware of
Objective
Labs:
01/25/25 06:03
01/25/25 06:03
Labs
Hgb 8.9 g/dL (13.0-18.0) L 01/25/25 06:03
Hct 32.1 % (39.0-52.0) L 01/25/25 06:03
Plt Count 277 10^3/uL (130-400) 01/25/25 06:03
PT 19.2 Sec (11.4-14.6) H 01/23/25 12:23
INR 1.56 01/23/25 12:23
APTT 36.2 Sec (23.4-35.0) H 01/23/25 12:23
Sodium 140 mmol/L (135-145) 01/25/25 06:03
Potassium 4.1 mmol/L (3.5-5.1) 01/25/25 06:03
BUN 36 mg/dl (9-20) H 01/25/25 06:03
Creatinine 1.4 mg/dL (0.7-1.3) H 01/25/25 06:03
Glucose 96 mg/dl (70-99) 01/25/25 06:03
Troponins
01/23/25 01/23/25
12:23 15:30
Troponin I 0.034 0.032
Vital Signs and I&O:
Vital Signs
Temp Pulse Resp BP Pulse Ox
98.3 F 69 18 114/82 96
01/25/25 11:16 01/25/25 11:16 01/25/25 11:16 01/25/25 11:16 01/25/25 11:16
Vital Signs
Temp Pulse Resp BP Pulse Ox
98.3 F 69 18 114/82 96
01/25/25 11:16 01/25/25 11:16 01/25/25 11:16 01/25/25 11:16 01/25/25 11:16
Intake & Output
01/23/25 01/24/25 01/25/25 01/26/25
06:59 06:59 06:59 06:59
Intake Total 1090 / 1090 720 / 720 240 / 240
Output Total 2775 / 2775 1525 / 1525
Balance -1685 / -1685 -805 / -805 240 / 240
Physical Exam
Physical Exam
GEN: No distress, awake, Ox3
HEENT: supple, anicteric, mmm
LUNGS: CTA, no wheezes/rales
CV: Irreg S1/S2, 2/6 syst apex
ABD: soft, BS+, NT/ND
EXT: No edema
NEURO: Gross non-focal
SKIN: No rash
[2025-01-25] MEDS: FERRLECIT 110 MG IV (13:06)
--- NOTE | 2025-01-25 14:28 | CON.GI ---
Consultation
-
Date/Time Consultation Requested: 01/25/25
Date/Time Consultation Performed: 01/25/25
Requesting Provider: Dr. Pastor
Performing Provider: Dr. Byers
Reason for Consultation: Microyctic Anemia
Medical History
Chief Complaint / HPI
Chief Complaint: Microcytic anemia
History of Present Illness:
Carroll Sanchez is an 84 y.o. gentleman with pmhx pAfib on eliquis, SVT, hypertension, CAD, chronic diastolic HF, COPD, DM2, admitted with acute HFpEF exacerbation and symptomatic anemia, c/f GI bleeding while on anticoagulation. Outpatient labs
demonstrated a microcytic anemia, hgb 8.6. He was admitted to [facility] in July for heart failure exacerbation, noted to have a microcytic iron deficiency anemia at htat time.
He was seen by GI and recommended proceeding with inpatient evaluation. Bidirectional endoscopy was performed on 08/09/24, at which time his hemoglobin was 9.1-9.4, with below findings.
EGD 08/09/24: Normal esophagus. Antral gastritis. Normal examined duodenum.
Colonoscopy 08/09/24: Normal mucosa in the AO, cecum and IC valve (no mention of TI intubation). 3x TAs in the distal transverse colon. 4x TAs in the proximal transverse colon. 4x TAs in the ascending colon. 12 mm TVA w/ HGD in the ascending colon,
tattooed. Internal and external hemorrhoids.
No VCE performed. He is scheduled to have repeat colonoscopy on 02/21.
Hemoglobin on admission 8.6 -->9.2 --> 8.9. His eliquis is currently being held. He does admit to intermittent bright red blood per rectum with wiping, denies black tarry stool. BUN chronically elevated, appears to be around baseline.
Iron 33, %sat 6, Ferritin 21
Past Medical History
Past Medical History: Other (Coronary Artery Disease s/p Stent Chronic Diastolic Heart Failure Atrial Fibrillation Essential Hypertension Hyperlipidemia Diabetes Mellitus, Type II COPD)
Past Surgical History: Other (Appendectomy, Back surgery, cataracts)
Social History
Tobacco: Former Smoker
Alcohol: Occasional
Family History
Family History: Reviewed & Not Pertinent
Allergies / Home Medications
Allergy/AdvReac Type Severity Reaction Status Date / Time
No Known Allergies Allergy Verified 01/23/25 11:57
�Medication �Instructions �Recorded
folic acid 1 mg tablet 1 mg PO DAILY Supplement 11/04/15
rosuvastatin 20 mg tablet 20 mg PO DAILY High cholesterol 11/04/15
metformin 500 mg tablet,extended 500 mg PO BID Diabetes 05/31/17
release 24 hr
famotidine 20 mg tablet 40 mg PO BID Gastrointestinal issue 06/05/19
apixaban 5 mg tablet (Eliquis) 5 mg PO BID Blood Clot 08/01/24
Prevention/Tx
furosemide 40 mg tablet 40 mg PO MOTUWE Fluid 08/01/24
Retention/Swelling
pantoprazole 40 mg tablet,delayed 40 mg PO DAILY Gastrointestinal 08/01/24
release Issue
carvedilol 6.25 mg tablet 6.25 mg PO BID Blood Pressure 01/23/25
cholecalciferol (vitamin D3) 50 50 mcg PO DAILY Supplement 01/23/25
mcg (2,000 unit) tablet
isosorbide mononitrate 30 mg 30 mg PO DAILY Blood Pressure 01/23/25
tablet,extended release 24 hr
Review of Systems
-
All other systems: A 12 pt ROS was Negative except as stated above in HPI
Vital Signs
Temp Pulse Resp BP Pulse Ox
98.3 F 69 18 114/82 96
01/25/25 11:16 01/25/25 11:16 01/25/25 11:16 01/25/25 11:16 01/25/25 11:16
Physical Exam
Exam
General: Well Developed and Well Nourished
Cardiac: Irregular Rhythm
GI: Soft, Non Tender, Non Distended and Normal Bowel Sounds
Musculoskeletal: No Edema
Results
WBC 8.1 10^3/uL (4.8-10.8) 01/25/25 06:03
Hgb 8.9 g/dL (13.0-18.0) L 01/25/25 06:03
Hct 32.1 % (39.0-52.0) L 01/25/25 06:03
MCV 77.5 fL (80.0-94.0) L 01/25/25 06:03
Plt Count 277 10^3/uL (130-400) 01/25/25 06:03
Absolute Neuts (auto) 7.2 10^3/uL (1.4-6.5) H 01/23/25 12:23
PT 19.2 Sec (11.4-14.6) H 01/23/25 12:23
INR 1.56 01/23/25 12:23
APTT 36.2 Sec (23.4-35.0) H 01/23/25 12:23
Sodium 140 mmol/L (135-145) 01/25/25 06:03
Potassium 4.1 mmol/L (3.5-5.1) 01/25/25 06:03
Chloride 104 mmol/L (98-107) 01/25/25 06:03
Carbon Dioxide 27 mmol/L (22-30) 01/25/25 06:03
BUN 36 mg/dl (9-20) H 01/25/25 06:03
Creatinine 1.4 mg/dL (0.7-1.3) H 01/25/25 06:03
Calcium 9.0 mg/dl (8.4-10.2) 01/25/25 06:03
Total Bilirubin 1.1 mg/dl (0.2-1.3) 01/23/25 12:23
AST 15 U/L (17-59) L 01/23/25 12:23
ALT 11 U/L (0-50) 01/23/25 12:23
Alkaline Phosphatase 63 U/L (38-126) 01/23/25 12:23
Diagnostic Image Results:
Prior GI Procedures: See HPI
Assessment / Plan
-
84 y.o. gentleman with pmhx pAfib on eliquis, SVT, hypertension, CAD, chronic diastolic HF, COPD, DM2, admitted with acute HFpEF exacerbation and symptomatic anemia, c/f GI bleeding while on anticoagulation.
#Microcytic, iron deficiency anemia
-holding eliquis, high stroke risk but c/f GI bleeding
-no overt signs of GI bleeding, heme negative stool
-s/p EGD/Colonoscopy on 08/09/24 without identifiable source of bleeding, was found to have multiple tubular adenomas as well as a 12 mm TVA w/ HGD
-no VCE performed for small bowel evaluation
-hgb is similar to prior eval at [place] in August
-currently getting pantoprazole 40mg PO once daily, will start IV PPI BID
-getting iron replacement
-okay for heparin gtt, will monitor for 24 hours and okay to resume eliquis if hgb stable/no signs of overt GI bleeding
-if dropping hemoglobin, would favor repeat EGD to start, otherwise, would recommend outpatient capsule with his GI doctor
#History of Colon polyps, TVA w/ HGD
-scheduled for repeat outpatient colonsocopy on 02/21
Data Reviewed
-
Old Records: Reviewed
-
-
Thank you for consultation and allowing me to participate in the patient's care. Please call the environment coordinator GI physician during the after hours with any questions or concerns.
[2025-01-25 14:52] VITALS: BP 100/63; BP 112/63; BP 99/61; PULSE 62; PULSE 67
[2025-01-25 16:23] LABS: Glucose - Point of Care 118 mg/dl (70-99)
[2025-01-25 16:33] LABS: Hematocrit 35.9 % (39.0-52.0); Hemoglobin 10.5 g/dL (13.0-18.0); Mean Corp Hgb Conc. 29.2 g/dL (33.0-37.0); Mean Corpuscular Volume 74.5 fL (80.0-94.0); Platelet Count 304 10^3/uL (130-400); Red Cell Dist. Width 19.7 % (11.5-14.5)
[2025-01-25 16:50] LABS: APTT 35.3 Sec (23.4-35.0)
[2025-01-25] MEDS: HEPARIN 25000 UNITS/250 ML IV (17:01)
[2025-01-25 19:32] VITALS: BP 127/72
[2025-01-25 21:32] LABS: Glucose - Point of Care 114 mg/dl (70-99)
[2025-01-25] MEDS: PROTONIX IV 40 MG IV (21:51)
[2025-01-25] MEDS: NSS (PRESERVATIVE FREE) 10 ML IV (21:51)
[2025-01-25 23:00] VITALS: BP 116/84
[2025-01-25 23:22] LABS: APTT 57.8 Sec (23.4-35.0)
[2025-01-26] VITALS (7 sets, daily range): BP systolic 110–172; BP diastolic 65–95; PULSE 67–75; BMI 22.3
--- NOTE | 2025-01-26 03:00 | W.PN.UPDATE ---
Update Note
Progress Note Update
0240 PT c/o epistaxis that woke him out of a sleep. Steady dripping with difficulty stopping. Unfortunately pt is on heparin gtt for afib
Will need to hold heparin gtt with ongoing epistaxis. Afrin spray to right nare.
[2025-01-26] MEDS: AFRIN NASAL SPRAY 1 SPRAYS NASAL (04:47)
--- NOTE | 2025-01-26 04:50 | PTCARENOTE ---
Patient set off bed alarm and reported epistaxis that woke him up. Moderate amount of blood noted, denies pain and dizziness. BLANKET MAKER made aware, heparin drip placed on hold per order at 0255. Nasal spray also added. No further bleeding at this time.
Plan of care ongoing.
[2025-01-26 06:14] LABS: Hematocrit 34.0 % (39.0-52.0); Hemoglobin 9.8 g/dL (13.0-18.0); Mean Corp Hgb Conc. 28.8 g/dL (33.0-37.0); Mean Corpuscular Volume 77.1 fL (80.0-94.0); Platelet Count 258 10^3/uL (130-400); Red Cell Dist. Width 19.3 % (11.5-14.5)
[2025-01-26 06:15] LABS: Blood Urea Nitrogen 31 mg/dl (9-20); Calcium 9.0 mg/dl (8.4-10.2); Carbon Dioxide 28 mmol/L (22-30); Chloride 106 mmol/L (98-107); Estimated Creatinine Clearance 43 ml/min; Glucose 108 mg/dl (70-99); Potassium 3.8 mmol/L (3.5-5.1); Sodium 140 mmol/L (135-145); eGFR 49.25
[2025-01-26 06:17] LABS: APTT 37.2 Sec (23.4-35.0)
--- NOTE | 2025-01-26 08:01 | W.PN.GI.CBS2 ---
Addendum entered and electronically signed by Concepcion Byers, DO 01/26/25 09:07:
Okay to resume eliquis from a GI perspective and monitor hemoglobin closely.
Original Note:
Today's Communication / Plan
-
Epistaxis on heparin gtt, which was then held. Hemoglobin overall stable.
Assessment / Plan
-
84 y.o. gentleman with pmhx pAfib on eliquis, SVT, hypertension, CAD, chronic diastolic HF, COPD, DM2, admitted with acute HFpEF exacerbation and symptomatic anemia, c/f GI bleeding while on anticoagulation.
#Microcytic, iron deficiency anemia
-holding eliquis, high stroke risk but c/f GI bleeding
-no overt signs of GI bleeding, heme negative stool
-s/p EGD/Colonoscopy on 08/09/24 without identifiable source of bleeding, was found to have multiple tubular adenomas as well as a 12 mm TVA w/ HGD
-no VCE performed for small bowel evaluation, which would be the next step in workup, will try to reach out to patients outpatient GI doc (Dr. Tipton) to see if his office can arrange this
-hgb is similar to prior eval at [place] in August
-continue PPI IV BID
-getting iron replacement
-started on heparin gtt 01/25, developed hemostasis early in AM of 01/26, heparin gtt held-- hemolgobin has overall remained stable. Would restart heparin gtt when medically appropriate, not sure if needs ENT eval?
-if dropping hemoglobin, would favor repeat EGD to start, otherwise, would recommend outpatient capsule with his GI doctor
#History of Colon polyps, TVA w/ HGD
-scheduled for repeat outpatient colonsocopy on 02/21
Subjective
Subjective
Date of Service: January 26, 2025
Patient seen in follow-up. Brown bowel movement overnight. He was started on a heparin gtt yesterday, developed epistaxis early this AM, difficult to control, heparin gtt was subsequently held.
Objective
Data Reviewed
Laboratory Data:
Laboratory Results
01/26/25 05:47
01/26/25 05:47
Laboratory Results
PT 19.2 Sec (11.4-14.6) H 01/23/25 12:23
INR 1.56 01/23/25 12:23
APTT 37.2 Sec (23.4-35.0) H 01/26/25 05:47
Magnesium 1.6 mg/dl (1.6-2.3) 01/24/25 08:59
Total Bilirubin 1.1 mg/dl (0.2-1.3) 01/23/25 12:23
AST 15 U/L (17-59) L 01/23/25 12:23
ALT 11 U/L (0-50) 01/23/25 12:23
Alkaline Phosphatase 63 U/L (38-126) 01/23/25 12:23
Vital Signs and I&O:
Vital Signs
Temp Pulse Resp BP Pulse Ox
97.9 F 82 18 131/95 97
01/26/25 03:08 01/26/25 03:08 01/26/25 03:08 01/26/25 03:08 01/26/25 03:08
I&O
01/25/25 01/26/25 01/27/25
06:59 06:59 06:59
Intake Total 720 / 720 1010 / 1010
Output Total 1525 / 1525 450 / 450
Balance -805 / -805 560 / 560
Physical Exam
Physical Exam
HEENT: Anicteric and Moist mucous membranes
Cardiology: Irregular Rate/Rhythm
GI: Soft, Non Distended, Non Tender and Normal Bowel Sounds
[2025-01-26 08:03] LABS: Glucose - Point of Care 121 mg/dl (70-99)
[2025-01-26] MEDS: SENOKOT-S 2 TABLET PO ×2 (08:03→20:34)
[2025-01-26] MEDS: CRESTOR 20 MG PO (08:03)
[2025-01-26] MEDS: COREG 6.25 MG PO ×2 (08:03→20:38)
[2025-01-26] MEDS: IMDUR (EXTENDED RELEASE) 30 MG PO (08:03)
[2025-01-26] MEDS: LASIX 40 MG PO (08:03)
[2025-01-26] MEDS: PEPCID 20 MG PO (08:03)
[2025-01-26] MEDS: PROTONIX IV 40 MG IV ×2 (08:04→20:35)
[2025-01-26] MEDS: NOVOLOG FLEXPEN-LOW RESISTANCE SC ×2 (08:04→12:54)
[2025-01-26] MEDS: NSS (PRESERVATIVE FREE) 10 ML IV ×2 (08:04→20:35)
--- NOTE | 2025-01-26 08:40 | W.PN.CARDCBS ---
Today's Communication / Plan
-
He appears euvolemic.
Cont oral lasix 40 mg daily
Outpt follow up of his significant valve disease including aortic stenosis, severe mitral regurgitation and moderate to severe tricuspid regurgitation.
He lost at least 9-16 lbs with diuresis
HR is well controlled. His atrial fibrillation burden is about 34%. Continue Coreg.
With microcytic anemia, Eliquis was held. Epistaxis resolved. Eliquis being resumed per GI in their discussion with primary service.
Could resume Eliquis dosing at 2.5 mg BID given age and and CKD.
If recurrent epistaxis, consider ENT eval.
Continue Coreg, Imdur, and rosuvastatin.
Impression / Plan
-
.
Primary Brick Paving Checker: Dr. Sumi Obando
Impression:
Acute heart failure with preserved EF
Acute on chronic anemia
ER visit to [facility] 01/18/25 for acute anemia, CHF
History of GI bleeding with polypectomy (precancerous) 07/2024
Moderate aortic stenosis
Severe mitral regurgitation
Moderate to severe tricuspid regurgitation with severe PHTN PASP 70 mmHg
CKD
Paroxysmal atrial fibrillation, 34% burden
History of CV 07/[address] since 2020
Chronic Eliquis anticoagulation
CAD with prior stenting in 2003 to circumflex
History of ablation for AVNRT in 2019
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
Hypertension
Type 2 diabetes
PVCs
Bradycardia
COPD
ALBERT on CPAP
Former smoker
ECHO 10/04/23: EF 50%, stage III diastolic dysfunction, MAC, moderate eccentric MR, mild to moderate with peak/mean gradients 43/23 mmHg, JAIME 1.1 cm�, mild to moderate TR, PAP 60 mmHg
KACIE 08/01/24: EF 50%, no atrial appendage thrombus, at least moderate eccentric posteriorly directed MR, known , no AR, at least mild TR, mild to moderate atherosclerotic plaque along descending thoracic aorta, not mobile
Echo 02/01: EF 50 to 55%, mild LVH, stage III diastolic dysfunction, moderate aortic stenosis with severe mitral regurgitation. Moderate to severe TR PA pressure 70.
Plan:
He appears euvolemic.
Cont oral lasix 40 mg daily
Outpt follow up of his significant valve disease including aortic stenosis, severe mitral regurgitation and moderate to severe tricuspid regurgitation.
He lost at least 9-16 lbs with diuresis
HR is well controlled. His atrial fibrillation burden is about 34%. Continue Coreg.
With microcytic anemia, Eliquis was held. Epistaxis resolved. Eliquis being resumed per GI in their discussion with primary service.
Could resume Eliquis dosing at 2.5 mg BID given age and and CKD.
If recurrent epistaxis, consider ENT eval.
Continue Coreg, Imdur, and rosuvastatin.
Hx known CAD, appreciate GI input given if he would need eventual ischemic eval he would need GI clearance.
Discussed with nursing and primary service.
Progress Note - Brick Paving Checker
Subjective
Date of Service: January 26, 2025
Pt seen and examined. No complaints. No chest pain or shortness of breath.
Objective
Labs:
01/26/25 05:47
01/26/25 05:47
Labs
Hgb 9.8 g/dL (13.0-18.0) L 01/26/25 05:47
Hct 34.0 % (39.0-52.0) L 01/26/25 05:47
Plt Count 258 10^3/uL (130-400) 01/26/25 05:47
PT 19.2 Sec (11.4-14.6) H 01/23/25 12:23
INR 1.56 01/23/25 12:23
APTT 37.2 Sec (23.4-35.0) H 01/26/25 05:47
Sodium 140 mmol/L (135-145) 01/26/25 05:47
Potassium 3.8 mmol/L (3.5-5.1) 01/26/25 05:47
BUN 31 mg/dl (9-20) H 01/26/25 05:47
Creatinine 1.4 mg/dL (0.7-1.3) H 01/26/25 05:47
Glucose 108 mg/dl (70-99) H 01/26/25 05:47
Troponins
01/23/25 01/23/25
12:23 15:30
Troponin I 0.034 0.032
Vital Signs and I&O:
Vital Signs
Temp Pulse Resp BP Pulse Ox
98.2 F 66 18 172/93 100
01/26/25 07:12 01/26/25 07:12 01/26/25 07:12 01/26/25 07:12 01/26/25 07:12
Vital Signs
Temp Pulse Resp BP Pulse Ox
98.2 F 66 18 172/93 100
01/26/25 07:12 01/26/25 07:12 01/26/25 07:12 01/26/25 07:12 01/26/25 07:12
Intake & Output
01/24/25 01/25/25 01/26/25 01/27/25
06:59 06:59 06:59 06:59
Intake Total 1090 / 1090 720 / 720 1010 / 1010
Output Total 2775 / 2775 1525 / 1525 450 / 450
Balance -1685 / -1685 -805 / -805 560 / 560
Physical Exam
Physical Exam
General: No acute distress, AAOX3
Neck: Negative JVD
Heart: Regular, Negative S3 positive S1/S2, Negative S4, No murmur
Lungs: CTA b/l, negative wheezes/rales/rhonchi
Abd: Positive BS, NT/ND, neg rebound/rigidity/guarding
Ext: Negative cyanosis/clubbing/edema
Neuro: nonfocal
--- NOTE | 2025-01-26 09:01 | W.PN.HOSP.TC ---
Addendum entered and electronically signed by Stan Pastor MD 01/26/25 13:57:
Addendum
Updated on phone, plan to do Eliquis, monitor counts for now.
End
Original Note:
Today's Communication/Plan
-
Discussed with GI and cardiology: Plan to resume Eliquis 01/26, monitor HGB
IV Iron while in hospital
Assessment / Plan
Assessment / Plan
Physical Exam
General: chronically ill looking, no Apparent Distress
HEENT: Normocephalic, Anicteric, Moist mucous membranes and Atraumatic
Respiratory: clear lungs, I did not hear rales
Cardiac: S1/S2, Irregular Rhythm, Murmur
GI: Soft, Non Tender, Non Distended
Rectal: Hem Negative (In ER ), no black stools or bleeding.
Musculoskeletal: No Clubbing, No Cyanosis and No Edema
Skin: Warm and Dry; No Rash
Neuro: Awake, Alert, Oriented and Nonfocal/grossly intact
Psych: Calm
Acute on Chronic HF mildly reduced EF at LVEF 50%
Mild in severity
His breathing is back to normal
s/p IV Lasix 40 mg QD, now on oral
Echo 01/24/25 showed LVEF 50 to 55%, mild LVH, stage III diastolic dysfunction, moderate aortic stenosis, severe mitral regurgitation, moderate to severe tricuspid regurgitation, estimated PAP 70 mmHg.
He lost weight, and he feels comfortable
on BB, Imdur, Lasix, Statin,
Further GDMT for HF per cardiology
Monitor BMP
Per cardiology: Cont oral Lasix 40 mg daily. Out-pt follow up of his significant valve disease
Appreciate cardiology help
# Chronic blood loss anemia with microcytic Anemia
-Notes indicate baseline Hgb ~10-11
-s/p 1 unit PRBCs ordered by ED
-Low Iron, started IV Iron while in the hospital for 3-4 doses
s/p EGD/Colonoscopy on 08/09/24 without identifiable source of bleeding
- Bowel movements brown-colored and heme-negative. Rectal exam negative in the emergency room
-Initial stool heme-negative in ED - Continue to heme-test stools
Evaluated by GI. Started on PPI.
Discussed with GI, patient was given intravenous heparin challenge but was stopped due to nosebleed. Patient reported he had nosebleed many years ago but not recent. Currently, no ENT symptoms. Discussed with GI and cardiology, will start Eliquis
01/26 and monitor hemoglobin closely. per GI: if dropping hemoglobin, would favor repeat EGD to start, otherwise, would recommend outpatient capsule with his GI doctor
# Constipation
-Started Senna-S 2 tabs to HS
# Paroxysmal atrial fibrillation, 34% burden
History of CV 07/2024
c/w Coreg
Chronic Eliquis anticoagulation
Plan to resume Eliquis 01/26, monitor HGB
-Continue carvedilol for rate control
Coronary Artery Disease s/p Stent
-Patient is not currently on aspirin as outpatient
-Continue isosorbide mononitrate
-Continue rosuvastatin
# CKD stage IIIA
seems at baseline
Monitor for retention while on Lasix.
#Diabetes Mellitus, Type II
-ok tor resume Metformin upon discharge
-Monitor sugars and continue coverage insulin
DVT proph: SCDs
Code Status: Full Code
Total time spent to see the patient, examine the patient, review data and lab results, discuss treatment plan with patient, consultants, , nursing staff around 55 minutes
Anticipated Discharge: 24 - 48 hours
Subjective/Interval History
-
Date of Service: January 26, 2025
No chest pain
No abd pain
Sitting comfortably in chair
No nose bleeding
Objective Data
-
Labs:
Laboratory Results
01/25/25 01/26/25
23:02 05:47
WBC 8.1
Hgb 9.8 L
Hct 34.0 L
Plt Count 258
APTT 57.8 H 37.2 H
Sodium 140
Potassium 3.8
Chloride 106
Carbon Dioxide 28
BUN 31 H
Creatinine 1.4 H
Glucose 108 H
Calcium 9.0
Vital Signs:
Vital Signs
Temp Pulse Resp BP Pulse Ox
98.2 F 66 18 172/93 100
01/26/25 07:12 01/26/25 07:12 01/26/25 07:12 01/26/25 07:12 01/26/25 07:12
I&O
01/25/25 01/26/25 01/27/25
06:59 06:59 06:59
Intake Total 720 / 720 1010 / 1010
Output Total 1525 / 1525 450 / 450
Balance -805 / -805 560 / 560
[2025-01-26] MEDS: ELIQUIS 5 MG PO ×2 (10:14→20:34)
[2025-01-26 12:37] LABS: Glucose - Point of Care 131 mg/dl (70-99)
[2025-01-26] MEDS: FERRLECIT 110 MG IV (14:46)
[2025-01-26 18:05] LABS: Glucose - Point of Care 183 mg/dl (70-99)
[2025-01-26] MEDS: NOVOLOG FLEXPEN-LOW RESISTANCE 1 UNITS SC (18:29)
[2025-01-26 21:40] LABS: Glucose - Point of Care 100 mg/dl (70-99)
[2025-01-26] MEDS: TYLENOL 650 MG PO (21:40)
[2025-01-27 03:28] VITALS: BP 134/83
[2025-01-27 05:07] VITALS: BMI 22.2
[2025-01-27 07:00] VITALS: BP 135/79
[2025-01-27 08:23] LABS: Hematocrit 35.4 % (39.0-52.0); Hemoglobin 9.9 g/dL (13.0-18.0); Mean Corp Hgb Conc. 28.0 g/dL (33.0-37.0); Mean Corpuscular Volume 78.7 fL (80.0-94.0); Platelet Count 288 10^3/uL (130-400); Red Cell Dist. Width 20.4 % (11.5-14.5)
--- NOTE | 2025-01-27 08:32 | W.PN.CARDCBS ---
Today's Communication / Plan
-
Cont oral lasix
Cont Eliquis
Outpt cardiac follow up
Please recall if needed
Impression / Plan
-
.
Primary Bill Collector: Dr. Sumi Obando
Impression:
Acute heart failure with preserved EF
Acute on chronic anemia
ER visit to [facility] 01/18/25 for acute anemia, CHF
History of GI bleeding with polypectomy (precancerous) 07/2024
Moderate aortic stenosis
Severe mitral regurgitation
Moderate to severe tricuspid regurgitation with severe PHTN PASP 70 mmHg
CKD
Paroxysmal atrial fibrillation, 34% burden
History of CV 07/[address] since 2020
Chronic Eliquis anticoagulation
CAD with prior stenting in 2003 to circumflex
History of ablation for AVNRT in 2019
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
Hypertension
Type 2 diabetes
PVCs
Bradycardia
COPD
ALBERT on CPAP
Former smoker
ECHO 10/04/23: EF 50%, stage III diastolic dysfunction, MAC, moderate eccentric MR, mild to moderate with peak/mean gradients 43/23 mmHg, JAIME 1.1 cm�, mild to moderate TR, PAP 60 mmHg
KACIE 08/01/24: EF 50%, no atrial appendage thrombus, at least moderate eccentric posteriorly directed MR, known , no AR, at least mild TR, mild to moderate atherosclerotic plaque along descending thoracic aorta, not mobile
Echo 02/01: EF 50 to 55%, mild LVH, stage III diastolic dysfunction, moderate aortic stenosis with severe mitral regurgitation. Moderate to severe TR PA pressure 70.
Plan:
He remains euvolemic.
Cont oral lasix 40 mg daily
Outpt follow up of his significant valve disease including aortic stenosis, severe mitral regurgitation and moderate to severe tricuspid regurgitation.
He lost at least 9-16 lbs with diuresis
HR remains well controlled. His atrial fibrillation burden is about 34%. Continue Coreg.
Eliquis resumed and H/H stable.
No recurrent epistaxis.
Continue Eliquis dosing at 2.5 mg BID given age and and CKD.
Continue Coreg, Imdur, and rosuvastatin.
Hx known CAD, appreciate GI input given if he would need eventual ischemic eval he would need GI clearance.
Discussed with nursing and primary service.
Will arrange outpt follow up.
Please recall if needed.
Progress Note - Bill Collector
Subjective
Date of Service: January 27, 2025
Pt seen and examined. No complaints. No chest pain or shortness of breath.
Objective
Labs:
01/27/25 07:44
Labs
Hgb 9.9 g/dL (13.0-18.0) L 01/27/25 07:44
Hct 35.4 % (39.0-52.0) L 01/27/25 07:44
Plt Count 288 10^3/uL (130-400) 01/27/25 07:44
PT 19.2 Sec (11.4-14.6) H 01/23/25 12:23
INR 1.56 01/23/25 12:23
APTT 37.2 Sec (23.4-35.0) H 01/26/25 05:47
Sodium 140 mmol/L (135-145) 01/26/25 05:47
Potassium 3.8 mmol/L (3.5-5.1) 01/26/25 05:47
BUN 31 mg/dl (9-20) H 01/26/25 05:47
Creatinine 1.4 mg/dL (0.7-1.3) H 01/26/25 05:47
Glucose 108 mg/dl (70-99) H 01/26/25 05:47
Vital Signs and I&O:
Vital Signs
Temp Pulse Resp BP Pulse Ox
98.4 F 67 18 134/83 97
01/27/25 03:28 01/27/25 03:28 01/27/25 03:28 01/27/25 03:28 01/27/25 03:28
Vital Signs
Temp Pulse Resp BP Pulse Ox
98.4 F 67 18 134/83 97
01/27/25 03:28 01/27/25 03:28 01/27/25 03:28 01/27/25 03:28 01/27/25 03:28
Intake & Output
01/25/25 01/26/25 01/27/25 01/28/25
06:59 06:59 06:59 06:59
Intake Total 720 / 720 1010 / 1010 480 / 480
Output Total 1525 / 1525 450 / 450 200 / 200
Balance -805 / -805 560 / 560 280 / 280
Physical Exam
Physical Exam
General: No acute distress, AAOX3
Neck: Negative JVD
Heart: Regular, Negative S3 positive S1/S2, Negative S4, No murmur
Lungs: CTA b/l, negative wheezes/rales/rhonchi
Abd: Positive BS, NT/ND, neg rebound/rigidity/guarding
Ext: Negative cyanosis/clubbing/edema
Neuro: nonfocal
--- NOTE | 2025-01-27 08:39 | W.PN.GI.CBS2 ---
Today's Communication / Plan
-
Hemoglobin stable on eliquis. No plans for inpatient EGD. Recommend outpatient VCE with Dr. Tipton. I have reached out to him but no answer yet, please have patient call his office on discharge. Will sign off, please call with questions.
Assessment / Plan
-
84 y.o. gentleman with pmhx pAfib on eliquis, SVT, hypertension, CAD, chronic diastolic HF, COPD, DM2, admitted with acute HFpEF exacerbation and symptomatic anemia, c/f GI bleeding while on anticoagulation.
#Microcytic, iron deficiency anemia
-no overt signs of GI bleeding, heme negative stool
-s/p EGD/Colonoscopy on 08/09/24 without identifiable source of bleeding, was found to have multiple tubular adenomas as well as a 12 mm TVA w/ HGD
-no VCE performed for small bowel evaluation, which would be the next step in workup
-hgb is similar to prior eval at [place] in August
-okay to change to PO daily
-getting iron replacement
-started on heparin gtt 01/25, developed hemostasis early in AM of 01/26, heparin gtt held-- hemolgobin has overall remained stable. Resumed eliquis 01/26, hemoglobin stable this morning and no recurrence of epistaxis
- would recommend outpatient capsule with his GI doctor, which I discussed with patient. Will reach out to Dr. Tipton as well to see if I am able to arrange this
#History of Colon polyps, TVA w/ HGD
-scheduled for repeat outpatient colonsocopy on 02/21
Subjective
Subjective
Date of Service: January 27, 2025
Patient seen in follow-up. No overnight events. Eliquis resumed yesterday, no epistaxis or evidence of GI bleeding. He is very eager to go home.
Objective
Data Reviewed
Laboratory Data:
Laboratory Results
01/27/25 07:44
Laboratory Results
PT 19.2 Sec (11.4-14.6) H 01/23/25 12:23
INR 1.56 01/23/25 12:23
APTT 37.2 Sec (23.4-35.0) H 01/26/25 05:47
Magnesium 1.6 mg/dl (1.6-2.3) 01/24/25 08:59
Total Bilirubin 1.1 mg/dl (0.2-1.3) 01/23/25 12:23
AST 15 U/L (17-59) L 01/23/25 12:23
ALT 11 U/L (0-50) 01/23/25 12:23
Alkaline Phosphatase 63 U/L (38-126) 01/23/25 12:23
Vital Signs and I&O:
Vital Signs
Temp Pulse Resp BP Pulse Ox
98.4 F 67 18 134/83 97
01/27/25 03:28 01/27/25 03:28 01/27/25 03:28 01/27/25 03:28 01/27/25 03:28
I&O
01/26/25 01/27/25 01/28/25
06:59 06:59 06:59
Intake Total 1010 / 1010 480 / 480
Output Total 450 / 450 200 / 200
Balance 560 / 560 280 / 280
Physical Exam
Physical Exam
HEENT: Anicteric and Moist mucous membranes
Cardiology: Irregular Rate/Rhythm
GI: Soft, Non Distended, Non Tender and Normal Bowel Sounds
[2025-01-27 08:46] LABS: Glucose - Point of Care 121 mg/dl (70-99)
--- NOTE | 2025-01-27 08:48 | W.PN.HOSP.TC ---
Today's Communication/Plan
-
Discharge planning
Assessment / Plan
Assessment / Plan
Physical Exam
General: chronically ill looking, no Apparent Distress
HEENT: Normocephalic, Anicteric, Moist mucous membranes and Atraumatic
Respiratory: clear lungs, I did not hear rales
Cardiac: S1/S2, Irregular Rhythm, Murmur
GI: Soft, Non Tender, Non Distended
Rectal: Hem Negative (In ER ), no black stools or bleeding.
Musculoskeletal: No Clubbing, No Cyanosis and No Edema
Skin: Warm and Dry; No Rash
Neuro: Awake, Alert, Oriented and Nonfocal/grossly intact
Psych: Calm
Acute on Chronic HF mildly reduced EF at LVEF 50%
Mild in severity
His breathing is back to normal
s/p IV Lasix 40 mg QD, now on oral
Echo 01/24/25 showed LVEF 50 to 55%, mild LVH, stage III diastolic dysfunction, moderate aortic stenosis, severe mitral regurgitation, moderate to severe tricuspid regurgitation, estimated PAP 70 mmHg.
He lost weight, and he feels comfortable
on BB, Imdur, Lasix, Statin,
Further GDMT for HF per cardiology
Monitor BMP
Per cardiology: Cont oral Lasix 40 mg daily. Out-pt follow up of his significant valve disease
Appreciate cardiology help
# Chronic blood loss anemia with microcytic Anemia
-Notes indicate baseline Hgb ~10-11
-s/p 1 unit PRBCs ordered by ED
-Low Iron, started IV Iron while in the hospital for 3-4 doses
s/p EGD/Colonoscopy on 08/09/24 without identifiable source of bleeding
- Bowel movements brown-colored and heme-negative. Rectal exam negative in the emergency room
-Initial stool heme-negative in ED - Continue to heme-test stools
Evaluated by GI. Started on PPI.
Discussed with GI, patient was given intravenous heparin challenge but was stopped due to nosebleed. Patient reported he had nosebleed many years ago but not recent. Currently, no ENT symptoms. Discussed with GI and cardiology, will start Eliquis
01/26 and monitor hemoglobin closely. per GI: if dropping hemoglobin, would favor repeat EGD to start, otherwise, would recommend outpatient capsule with his GI doctor
# Constipation
-Started Senna-S 2 tabs to HS
# Paroxysmal atrial fibrillation, 34% burden
History of CV 07/2024
c/w Coreg
Chronic Eliquis anticoagulation
Plan to resume Eliquis 01/26, monitor HGB
-Continue carvedilol for rate control
Coronary Artery Disease s/p Stent
-Patient is not currently on aspirin as outpatient
-Continue isosorbide mononitrate
-Continue rosuvastatin
# CKD stage IIIA
seems at baseline
Monitor for retention while on Lasix.
#Diabetes Mellitus, Type II
-ok tor resume Metformin upon discharge
-Monitor sugars and continue coverage insulin
DVT proph: SCDs
Code Status: Full Code
Anticipated Discharge: Today
Subjective/Interval History
-
Date of Service: January 27, 2025
No shortness of breath or chest pain.
Objective Data
-
Labs:
Laboratory Results
01/27/25
07:44
WBC 7.9
Hgb 9.9 L
Hct 35.4 L
Plt Count 288
Sodium Pending
Potassium Pending
Chloride Pending
Carbon Dioxide Pending
BUN Pending
Creatinine Pending
Glucose Pending
Calcium Pending
Vital Signs:
Vital Signs
Temp Pulse Resp BP Pulse Ox
98.4 F 67 18 134/83 97
01/27/25 03:28 01/27/25 03:28 01/27/25 03:28 01/27/25 03:28 01/27/25 03:28
I&O
01/26/25 01/27/25 01/28/25
06:59 06:59 06:59
Intake Total 1010 / 1010 480 / 480
Output Total 450 / 450 200 / 200
Balance 560 / 560 280 / 280
[2025-01-27 08:56] LABS: Blood Urea Nitrogen 26 mg/dl (9-20); Calcium 9.4 mg/dl (8.4-10.2); Carbon Dioxide 27 mmol/L (22-30); Chloride 106 mmol/L (98-107); Estimated Creatinine Clearance 46 ml/min; Glucose 109 mg/dl (70-99); Potassium 3.8 mmol/L (3.5-5.1); Sodium 141 mmol/L (135-145); eGFR 53.84
[2025-01-27] MEDS: NOVOLOG FLEXPEN-LOW RESISTANCE SC ×2 (09:05→12:03)
[2025-01-27] MEDS: COREG 6.25 MG PO (09:09)
[2025-01-27] MEDS: SENOKOT-S 2 TABLET PO (09:10)
[2025-01-27] MEDS: PEPCID 20 MG PO (09:10)
[2025-01-27] MEDS: LASIX 40 MG PO (09:10)
[2025-01-27] MEDS: IMDUR (EXTENDED RELEASE) 30 MG PO (09:10)
[2025-01-27] MEDS: ELIQUIS 5 MG PO (09:10)
[2025-01-27] MEDS: CRESTOR 20 MG PO (09:10)
[2025-01-27] MEDS: PROTONIX IV IV (09:11)
[2025-01-27] MEDS: NSS (PRESERVATIVE FREE) IV (09:11)
--- NOTE | 2025-01-27 09:41 | CM ---
PT indicated VN . Pt requested [facility] accepted pt .
On po Lasix.
will drive him home.
PLAN Home with [facility]
[2025-01-27 11:00] VITALS: BP 88/54
[2025-01-27 12:02] LABS: Glucose - Point of Care 110 mg/dl (70-99)
--- NOTE | 2025-01-27 12:17 | W.DCSUMMARY ---
Discharge Summary
Discharge Data
Date of Admission: 01/23/25
Date of Discharge: 01/27/25
Total time spent discharging patient (in min): 35
-
Pending Results: No
Hospital Course
Patient 84 years old male history of hypertension, CAD, CHF, diabetes mellitus, COPD, A-fib, SVT, CAD, came into the hospital with heart failure exacerbation. Cardiology was consulted. Patient was treated with IV diuresis and he lost about 9 to 16
pounds with diuresis during this hospital stay. He was stable to be switched to oral diuresis close discharge. His echocardiogram showed EF of 50 to 55%, mild LVH, stage III diastolic dysfunction, moderate aortic stenosis with severe mitral
regurgitation, moderate to severe TR PA pressure of 70. He was continued on his rest of cardiac medications and he tolerated well. Patient also had some anemia and GI was consulted and anticoagulation was placed on hold. GI felt there was no
evidence of active GI bleed and they were okay with anticoagulation and follow-up with GI as outpatient. He was challenged with heparin drip and he did have some epistaxis but his hemoglobin remained stable. He was able to be switched to oral
Eliquis 5 mg twice a day and he tolerated well. Cardiology cleared him for discharge today. He will be discharged in stable condition.
Discharge duration: 35 minutes
Discharge Plan
-
Patient Disposition: Home with Home Care
Discharge Diagnosis/Procedures: Acute diastolic congestive heart failure. Paroxysmal atrial fibrillation. Chronic anemia. Moderate aortic stenosis. Severe mitral regurgitation. Moderate to severe tricuspid regurgitation. History of coronary
artery disease.
Diet: 2 Gram Sodium and Diabetic, Carb Controlled
Activity: As tolerated
Blood Work: Please PCP to order CBC, BMP within 1 week
Specialty Instructions: Weigh Daily- Call MD for wt gain/loss 3 lbs overnight/5 lbs in 1 week
Instructions: *[facility] Heart Failure Instructions
Referrals:
Amy Garcias MD [Family Provider, Internal Medicine] - in less than 1 week
Concepcion Byers DO [Active, Gastroenterology] - in two to four weeks
Kelly Spangler CRNP [Specified Professional Personl, Cardiology] - 02/04/25 2:00 pm
Referral Note: You have a cardiology follow-up appointment at the [place] office with Dr. Jonas's nurse practitioner, Kelly. Please call with questions
Prescriptions:
New
furosemide 40 mg Tablet
40 mg PO DAILY Qty: 30 0RF
ferrous sulfate 325 mg (65 mg iron) tablet
325 mg PO Q OTHER DAY Qty: 15 0RF
Continued
folic acid 1 MG tablet
1 mg PO DAILY
rosuvastatin 20 MG tablet
20 mg PO DAILY
metformin 500 MG tablet extended release 24 hr
500 mg PO BID
famotidine 20 MG tablet
40 mg PO BID
pantoprazole 40 mg Tablet,Delayed Release (Dr/Ec)
40 mg PO DAILY
Eliquis 5 mg Tablet
5 mg PO BID
carvedilol 6.25 mg Tablet
6.25 mg PO BID
isosorbide mononitrate 30 mg tablet extended release 24 hr
30 mg PO DAILY
cholecalciferol (vitamin D3) 50 mcg (2,000 unit) Tablet
50 mcg PO DAILY
Discontinued
furosemide 40 mg Tablet
40 mg PO MOTUWE
Discharge Orders:
Discharge Patient (As Directed); Ordered 01/27/25
Ordered By: Braden Joseph
Discharge Date and Time
Discharge Date/Time: 01/27/25 16:30
Print Language: KYRGYZ
[2025-01-27 14:48] VITALS: BP 132/77; PULSE 68; O2SAT 97
--- NOTE | 2025-01-27 14:52 | VNURNOTE ---
Home Health Liaison met with patient at bedside to discuss [facility] nurse/therapy, visits, schedule and homebound status. Patient is agreeable and understands that visits at home will be 2-3 x per week to assess and teach medical management.
Patient is aware that [facility] will contact them for start of care in 1-2 days after discharge from .
[facility] referral accepted in [facility].
--- NOTE | 2025-01-28 10:40 | W.HF.CON ---
Heart Failure
- LV Function
Left ventricular function study result: LV Ejection fraction >/= 50%
Ejection Fraction Percentage: 50-55
- ARNI
Patient already on ARNI: No
Heart Failure ARNI Not Indicated: LV Ejection Fraction >/= 40%
- ACEI/ARB
Patient already on ACEI/ARB: No
Heart Failure ACEI/ARB Not Indicated: LV Ejection Fraction > 40%
- Beta Bianca
Patient already on Evidence Based Beta Bianca: Yes
- Mineralocorticord Receptor Antagonist
Patient already on MRA: No
Heart Failure MRA Not Indicated: LV Ejection Fraction > 40%
- SGLT-2 Inhibitor
Patient already on SGLT-2 Inhibitor: No
Heart Failure SGLT-2 Inhibitor Contraindication: Patient Refusal
- Afib Anticoagulation
Patient already on Anticoagulation for Afib: Yes
- NYHA CHF Classification
NYHA CHF Classification Level: Class III - Symptoms w/ min exertion, interferes w/ nml daily activity
- ACC/AHA Stage
ACC/AHA Stage: Stage C: Symptomatic Heart Failure
== END 2025-01-27 16:30 | disposition home health service (06) | DRG 291 ==
LOC: 4 EAST ACU 14:15
PROVIDERS: Internal Medicine; Physician Assistant Medical; ADMITTING PHYSICIAN Hospitalist; ATTENDING PHYSICIAN Hospitalist; EMERGENCY PHYSICIAN Emergency Medicine; FAMILY PHYSICIAN Internal Medicine; OTHER PHYSICIAN Internal Medicine
PROC: 30233N1 Transfusion of Nonautologous Red Blood Cells into Peripheral Vein, Percutaneous Approach (ICD-10-PCS; 2025-01-23)
DX: I13.0 Hypertensive heart and chronic kidney disease with heart failure and stage 1 through stage 4 chronic kidney disease, or unspecified chronic kidney disease (principal); I50.33 Acute on chronic diastolic (congestive) heart failure; I48.92 Unspecified atrial flutter; I47.10 Supraventricular tachycardia, unspecified; I48.0 Paroxysmal atrial fibrillation; I25.10 Atherosclerotic heart disease of native coronary artery without angina pectoris; E11.36 Type 2 diabetes mellitus with diabetic cataract; K21.9 Gastro-esophageal reflux disease without esophagitis; I27.20 Pulmonary hypertension, unspecified; E83.42 Hypomagnesemia; J44.9 Chronic obstructive pulmonary disease, unspecified; D50.0 Iron deficiency anemia secondary to blood loss (chronic); K59.00 Constipation, unspecified; E11.22 Type 2 diabetes mellitus with diabetic chronic kidney disease; N18.31 Chronic kidney disease, stage 3a; K64.4 Residual hemorrhoidal skin tags; K64.8 Other hemorrhoids; I35.0 Nonrheumatic aortic (valve) stenosis; I34.0 Nonrheumatic mitral (valve) insufficiency; I07.1 Rheumatic tricuspid insufficiency; G47.33 Obstructive sleep apnea (adult) (pediatric); K29.70 Gastritis, unspecified, without bleeding; Z79.01 Long term (current) use of anticoagulants; Z95.5 Presence of coronary angioplasty implant and graft; Z87.891 Personal history of nicotine dependence; Z79.84 Long term (current) use of oral hypoglycemic drugs; Z79.899 Other long term (current) drug therapy; Z86.0100 Personal history of colon polyps, unspecified
CPT/HCPCS: 71046; 80048; 80053; 82607; 82728; 82746; 82962; 83036; 83540; 83550; 83735; 83880; 84484; 85025; 85027; 85610; 85730; 86850; 86900; 86901; 86920; 93005; 93306; 97116; 97162; 97166; 97530; 99285; J2916; P9016